=== PATIENT | male | born 1970 | race Caucasian/White ===

== ENCOUNTER 2017-10-14 04:47 | Emergency (ER) | payer MEDICAID, OTHER ==
[~2017-10-14] VITALS: Ht 183.5 cm; Wt 120.2 kg
[~2017-10-14 04:47] MED LIST: ADDERAL20 MG ORAL; AMOXICILLIN875 MG PO; KLONOPIN1 MG ORAL; LEXAPRO10 MG ORAL; NORCO 5-325 TA1 EACH ORAL; PRILOSEC OTC20 MG ORAL; PROPRANOLOL HCL40 MG ORAL
[2017-10-14] MEDS ORDERED: BENZTROPINE ME0.5 MG PO (04:55)
[2017-10-14] MEDS ORDERED: RISPERDAL0.25 MG ORAL (04:55)
[2017-10-14] MEDS ORDERED: LORAZEPAM0.5 MG ORAL (04:55)
[2017-10-14] MEDS ORDERED: INDERAL LA60 MG ORAL (04:55)
[2017-10-14] MEDS ORDERED: BUSPAR10 MG ORAL (04:55)
[2017-10-14] MEDS ORDERED: WELLBUTRIN XL150 MG ORAL (04:55)
[2017-10-14] MEDS ORDERED: LAMICTAL25 MG ORAL (04:55)
[2017-10-14 05:05] VITALS: BP 128/92
--- NOTE | 2017-10-14 05:06 | Emergency Room Report ---
History of Present Illness General Chief Complaint: Male Urogenital Problems Source: Patient Present Illness HPI This is a 47-year-old male with history of bipolar. He presents with chief complaint of difficult urinating. He said his been ongoing about a week now. Said he can't urinate less to give himself a small enema. He also has issues with urinating at home by himself. No fever or chills. No nausea no vomiting. No incontinence of bowel or urine. No constipation. Allergies: Coded Allergies: No Known Allergies (Unverified , 07/24/13) Patient History Past Medical History: see triage record, old chart reviewed, psych hx Past Surgical History: none Pertinent Family History: none Social History: Denies: smoking Immunizations: other Reviewed Nursing Documentation: PMH: Agreed; PSxH: Agreed Nursing Documentation-PMH Past Medical History: No History, Except For Hx Cancer: Yes - TESTICULAR 2014 Hx Neurological Problems: Yes - bipolar Review of Systems Eye: Denies: eye pain, blurred vision ENT: Denies: ear pain, nose congestion, throat swelling Respiratory: Denies: cough, shortness of breath Cardiovascular: Denies: chest pain, palpitations Gastrointestinal: Denies: abdominal pain, diarrhea, nausea, vomiting Genitourinary: Reports: retention Musculoskeletal: Denies: back pain, joint pain Skin: Denies: rash Neurological: Denies: headache, numbness Endocrine: Denies: increased thirst, increased urine Hematologic/Lymphatic: Denies: easy bruising All Other Systems: negative except mentioned in HPI Physical Exam Vital Signs Date Time Temp Pulse Resp B/P (MAP) Pulse Ox O2 Delivery O2 Flow Rate FiO2 10/14/17 04:49 98.5 86 18 128/92 95 Room Air 98.4 vitals normal Sp02 EP Interpretation: reviewed, normal General Appearance: well appearing, no apparent distress, alert Head: normocephalic, atraumatic Eyes: bilateral eye PERRL, bilateral eye EOMI ENT: hearing grossly normal, normal pharynx Neck: full range of motion, supple, no meningismus Respiratory: chest non-tender, lungs clear, normal breath sounds Cardiovascular #1: regular rate, rhythm, no murmur Gastrointestinal: normal bowel sounds, non tender, no mass, no organomegaly, no bruit, non-distended Musculoskeletal: back normal, gait/station normal, normal range of motion Psychiatric: mood/affect normal Skin: warm/dry Medical Decision Making Diagnostic Impression: Primary Impression: Urinary dysfunction ER Course Patient presents with questionable urinary retention. Pop only showed about 350 mL initially. This may be more psychological than anything else. We'll put him on Flomax but no evidence of an infection. No evidence of obstruction. We'll discharge home. Last Vital Signs Date Time Temp Pulse Resp B/P (MAP) Pulse Ox O2 Delivery O2 Flow Rate FiO2 10/14/17 04:49 98.5 86 18 128/92 95 Room Air 98.4 Status: improved Disposition: HOME, SELF-CARE Condition: Stable Scripts Tamsulosin Hcl (TAMSULOSIN HCL*) 0.4 Mg Cap.er.24h 0.4 MG ORAL BEDTIME, #30 CAP Prov: PRISCILA CARDONA M.D. 10/14/17 Additional Instructions: Follow-up with your doctor in 7 days. If not better, you may need a referral to see a urologist. Return if symptom worsen. PRISCILA CARDONA M.D. Oct 14, 2017 05:06
[2017-10-14 05:41] LABS: APPEARANCE,URINE CLEAR; BILIRUBIN, URINE NEGATIVE (NEGATIVE); GLUCOSE, URINE (UA) NEGATIVE (NEGATIVE); KETONES,URINE NEGATIVE (NEGATIVE); LEUKOCYTE ESTERASE ,URINE NEGATIVE (NEGATIVE); NITRITE,URINE NEGATIVE (NEGATIVE); PH,URINE 6.5 (4.5-8.0); PROTEIN,URINE NEGATIVE (NEGATIVE); UROBILINOGEN,URINE NORMAL MG/DL (0.0-1.0)
[2017-10-14 05:47] LABS: COLOR,URINE YELLOW
[2017-10-14] MEDS ORDERED: TAMSULOSIN HCL0.4 MG ORAL (05:57)
[2017-10-14 06:01] VITALS: BP 128/92
== END 2017-10-14 06:01 | disposition home or self-care (01) ==
LOC: EMR 05:08
DX: R33.9 Retention of urine, unspecified (principal); F31.9 Bipolar disorder, unspecified; Z85.47 Personal history of malignant neoplasm of testis
CPT/HCPCS: 81003; 99283

== ENCOUNTER 2017-10-14 23:19 | Emergency (ER) | payer OTHER ==
[~2017-10-14] VITALS: Ht 183.5 cm; Wt 120.2 kg
[~2017-10-14 23:19] MED LIST changes: +BENZTROPINE ME0.5 MG PO; +BUSPAR10 MG ORAL; +INDERAL LA60 MG ORAL; +LAMICTAL25 MG ORAL; +LORAZEPAM0.5 MG ORAL; +RISPERDAL0.25 MG ORAL; +TAMSULOSIN HCL0.4 MG ORAL; +WELLBUTRIN XL150 MG ORAL
[2017-10-15 00:51] LABS: BASOPHILS % (AUTO) 0.8 % (0.0-2.0); EOSINOPHILS % (AUTO) 2.2 % (0.0-3.0); HEMATOCRIT 47.2 % (42.0-52.0); HEMOGLOBIN 16.5 G/DL (14.2-18.0); MEAN CORPUSCULAR VOLUME 92 FL (80-99); MONOCYTES % (AUTO) 9.8 % (1.0-10.0); NEUTROPHILS % (AUTO) 59.2 % (45.0-75.0); PLATELET COUNT 213 K/UL (150-450); RED BLOOD COUNT 5.11 M/UL (4.70-6.10); WHITE BLOOD COUNT 6.8 K/UL (4.8-10.8)
[2017-10-15 01:11] LABS: ANION GAP 9 mmol/L (5-15); BLOOD UREA NITROGEN 12 mg/dL (7-18); CALCIUM 8.4 MG/DL (8.5-10.1); CARBON DIOXIDE 25 MMOL/L (21-32); CHLORIDE 104 MMOL/L (98-107); CREATININE 1.5 MG/DL (0.55-1.30); POTASSIUM 4.1 MMOL/L (3.5-5.1); SODIUM 138 MMOL/L (136-145)
[2017-10-15 01:15] LABS: ALANINE AMINOTRANSFERASE 40 U/L (12-78); ALBUMIN 3.8 G/DL (3.4-5.0); ALBUMIN/GLOBULIN RATIO 1.2 (1.0-2.7); ALKALINE PHOSPHATASE 65 U/L (46-116); ASPARTATE AMINO TRANSFERASE 16 U/L (15-37); BILIRUBIN,TOTAL 0.4 MG/DL (0.2-1.0)
[2017-10-15 02:29] VITALS: BP 107/91
--- NOTE | 2017-10-15 02:45 | Emergency Room Report ---
History of Present Illness General Chief Complaint: Male Urogenital Problems Source: Patient Present Illness HPI 47-year-old male, no significant past medical history, presenting with intermittent urinary retention for one week. States that he only "trickles a little bit". No fever no chills no abdominal pain no discomfort just states that he cannot urinate normally. Denies any other complaints Allergies: Coded Allergies: No Known Allergies (Unverified , 07/24/13) Patient History Past Medical History: see triage record Past Surgical History: none Pertinent Family History: none Reviewed Nursing Documentation: PMH: Agreed; PSxH: Agreed Nursing Documentation-PMH Past Medical History: No History, Except For Hx Cancer: Yes - TESTICULAR 2014 Hx Neurological Problems: Yes - bipolar Review of Systems All Other Systems: negative except mentioned in HPI Physical Exam Vital Signs Date Time Temp Pulse Resp B/P (MAP) Pulse Ox O2 Delivery O2 Flow Rate FiO2 10/14/17 23:36 97.8 71 16 127/87 94 Room Air 97.9 Sp02 EP Interpretation: reviewed, normal General Appearance: normal inspection, well appearing, no apparent distress, alert, GCS 15, non-toxic Head: normocephalic, atraumatic Eyes: bilateral eye normal inspection, bilateral eye PERRL, bilateral eye EOMI ENT: normal ENT inspection, normal pharynx, normal voice, moist mucus membranes Neck: normal inspection, full range of motion, supple Respiratory: normal inspection, lungs clear, normal breath sounds, no respiratory distress, no retraction, no wheezing, speaking full sentences, chest symmetrical Cardiovascular #1: normal inspection, regular rate, rhythm, no edema, normal capillary refill Cardiovascular #2: 2+ radial (R), 2+ radial (L) Gastrointestinal: normal inspection, non tender, soft, non-distended, no guarding Genitourinary: no CVA tenderness Musculoskeletal: normal inspection, back normal, normal range of motion, non- tender Neurologic: normal inspection, alert, oriented x3, responsive, motor strength/ tone normal, sensory intact, normal gait, speech normal Psychiatric: normal inspection, judgement/insight normal, memory normal Skin: normal inspection, normal color, no rash, warm/dry, well hydrated, normal turgor Medical Decision Making Diagnostic Impression: Primary Impression: Urinary retention Additional Impression: Mild renal insufficiency ER Course 47-year-old male reportedly with questionable urinary retention for one week, he was already seen in our emergency room a couple days ago DDX: UTI, BPH, psychosomatic Plan: Obtain labs, UA ER course: Patient has remained stable during ED stay. States he still was not able to be during ED stay, however. He appears very comfortable Slightly elevated creatinine at 1.5, unknown normal Bedside ultrasound done performed by me noted to have some bladder distention however not significant Abdominal exam is benign Pop placed, ~800cc urine output DC with leg bag Disposition: Patient is to be discharged to home. Follow-up with urology in 3-4 days Please note that this Emergency Department Report was dictated using [employer] hand technology software, occasionally this can lead to erroneous entry secondary to interpretation by the dictation equipment Laboratory Tests Test 10/15/17 00:30 10/15/17 02:50 White Blood Count 6.8 K/UL (4.8-10.8) Red Blood Count 5.11 M/UL (4.70-6.10) Hemoglobin 16.5 G/DL (14.2-18.0) Hematocrit 47.2 % (42.0-52.0) Mean Corpuscular Volume 92 FL (80-99) Mean Corpuscular Hemoglobin 32.3 PG (27.0-31.0) H Mean Corpuscular Hemoglobin Concent 35.0 G/DL (32.0-36.0) Red Cell Distribution Width 11.0 % (11.6-14.8) L Platelet Count 213 K/UL (150-450) Mean Platelet Volume 6.5 FL (6.5-10.1) Neutrophils (%) (Auto) 59.2 % (45.0-75.0) Lymphocytes (%) (Auto) 28.0 % (20.0-45.0) Monocytes (%) (Auto) 9.8 % (1.0-10.0) Eosinophils (%) (Auto) 2.2 % (0.0-3.0) Basophils (%) (Auto) 0.8 % (0.0-2.0) Sodium Level 138 MMOL/L (136-145) Potassium Level 4.1 MMOL/L (3.5-5.1) Chloride Level 104 MMOL/L (98-107) Carbon Dioxide Level 25 MMOL/L (21-32) Anion Gap 9 mmol/L (5-15) Blood Urea Nitrogen 12 mg/dL (7-18) Creatinine 1.5 MG/DL (0.55-1.30) H Estimate Glomerular Filtration Rate 50.2 mL/min (>60) Glucose Level 105 MG/DL (74-106) Calcium Level 8.4 MG/DL (8.5-10.1) L Total Bilirubin 0.4 MG/DL (0.2-1.0) Aspartate Amino Transferase (AST) 16 U/L (15-37) Alanine Aminotransferase (ALT) 40 U/L (12-78) Alkaline Phosphatase 65 U/L (46-116) Total Protein 6.9 G/DL (6.4-8.2) Albumin 3.8 G/DL (3.4-5.0) Globulin 3.1 g/dL Albumin/Globulin Ratio 1.2 (1.0-2.7) Lipase 291 U/L (73-393) Urine Color Pale yellow Urine Appearance Clear Urine pH 6 (4.5-8.0) Urine Specific [place] 1.015 (1.005-1.035) Urine Protein Negative (NEGATIVE) Urine Glucose (UA) Negative (NEGATIVE) Urine Ketones Negative (NEGATIVE) Urine Occult Blood Negative (NEGATIVE) Urine Nitrite Negative (NEGATIVE) Urine Bilirubin Negative (NEGATIVE) Urine Urobilinogen Normal MG/DL (0.0-1.0) Urine Leukocyte Esterase Negative (NEGATIVE) Last Vital Signs Date Time Temp Pulse Resp B/P (MAP) Pulse Ox O2 Delivery O2 Flow Rate FiO2 10/15/17 02:29 98.2 66 15 107/91 100 Room Air 98.2 Disposition: HOME, SELF-CARE Condition: Improved Referrals: [facility],REFERRING (PCP) Patient Instructions: Acute Urinary Retention, Male, [id number] Rome Reddy M.D. Oct 15, 2017 02:45
[2017-10-15 03:38] LABS: APPEARANCE,URINE CLEAR; BILIRUBIN, URINE NEGATIVE (NEGATIVE); COLOR,URINE PALE YELLOW; GLUCOSE, URINE (UA) NEGATIVE (NEGATIVE); KETONES,URINE NEGATIVE (NEGATIVE); LEUKOCYTE ESTERASE ,URINE NEGATIVE (NEGATIVE); NITRITE,URINE NEGATIVE (NEGATIVE); PH,URINE 6 (4.5-8.0); PROTEIN,URINE NEGATIVE (NEGATIVE); UROBILINOGEN,URINE NORMAL MG/DL (0.0-1.0)
[2017-10-15 03:45] VITALS: BP 106/78
== END 2017-10-15 03:45 | disposition home or self-care (01) ==
LOC: EMR 23:43
DX: R33.9 Retention of urine, unspecified (principal); N28.9 Disorder of kidney and ureter, unspecified; Z85.47 Personal history of malignant neoplasm of testis; F31.9 Bipolar disorder, unspecified
CPT/HCPCS: 36415; 80053; 81003; 83690; 85025; 99282

== ENCOUNTER 2017-11-08 02:56 | Emergency (ER) | payer OTHER ==
[~2017-11-08] VITALS: Ht 182.9 cm; Wt 113.4 kg
[~2017-11-08 02:56] MED LIST changes: +CEPHALEXIN500 MG ORAL
--- NOTE | 2017-11-08 03:22 | Emergency Room Report ---
History of Present Illness General Chief Complaint: Male Urogenital Problems Source: Patient Present Illness HPI Patient 47-year-old male who presented after decreased urine output. Patient reports having prior history of the recent Pop catheter placement. The patient had recently had Pop catheter removed. He was noted to have the decreased urinary output. Patient states he had not urinated in approximately 24 hours. Patient did not describe having any abdominal pain or flank pain. He denied sensation that he needed to void. Patient prior history of testicular cancer. Allergies: Coded Allergies: No Known Allergies (Unverified , 07/24/13) Patient History Reviewed Nursing Documentation: PMH: Agreed; PSxH: Agreed Nursing Documentation-PMH Hx Cancer: Yes - TESTICULAR 2014 Hx Neurological Problems: Yes - bipolar Review of Systems All Other Systems: negative except mentioned in HPI Physical Exam Vital Signs Date Time Temp Pulse Resp B/P (MAP) Pulse Ox O2 Delivery O2 Flow Rate FiO2 11/08/17 03:01 98.1 66 16 128/90 96 Room Air 98.1 Sp02 EP Interpretation: reviewed, normal General Appearance: normal inspection, well appearing, no apparent distress, alert, GCS 15 Head: atraumatic ENT: normal ENT inspection, hearing grossly normal, normal voice Neck: normal inspection, full range of motion, supple, no bony tend Respiratory: normal inspection, lungs clear, normal breath sounds, no respiratory distress, no retraction, no wheezing Cardiovascular #1: regular rate, rhythm, no edema Gastrointestinal: normal inspection, normal bowel sounds, non tender, soft, no guarding, no hernia Genitourinary: no CVA tenderness Musculoskeletal: normal inspection, back normal, normal range of motion Neurologic: normal inspection, alert, oriented x3, responsive, bench mechanic III-XII nml as tested, speech normal Psychiatric: normal inspection, judgement/insight normal, mood/affect normal Skin: normal inspection, normal color, no rash Medical Decision Making Diagnostic Impression: Primary Impression: H/O urinary retention ER Course The patient presented for decreased urine output.Differential diagnoses included was not limited to urinary retention, prerenal azotemia, intrarenal failure, postrenal azotemia, dehydration among others.Because of complexity of patient's case laboratory testing and imaging studies were ordered.Laboratory testing showed normal BUN/creatinine. The patient's bedside ultrasound showed nondistended bladder. The patient's exam is inconsistent with dehydration. The patient is advised to recheck with his urologist in the next few days. Patient was advised to return if he isn't able to void or other concerns. Labs Test 11/08/17 03:00 White Blood Count 7.3 K/UL (4.8-10.8) Red Blood Count 5.28 M/UL (4.70-6.10) Hemoglobin 17.0 G/DL (14.2-18.0) Hematocrit 48.8 % (42.0-52.0) Mean Corpuscular Volume 92 FL (80-99) Mean Corpuscular Hemoglobin 32.1 PG (27.0-31.0) Mean Corpuscular Hemoglobin Concent 34.8 G/DL (32.0-36.0) Red Cell Distribution Width 11.1 % (11.6-14.8) Platelet Count 235 K/UL (150-450) Mean Platelet Volume 6.3 FL (6.5-10.1) Neutrophils (%) (Auto) 53.3 % (45.0-75.0) Lymphocytes (%) (Auto) 33.3 % (20.0-45.0) Monocytes (%) (Auto) 9.4 % (1.0-10.0) Eosinophils (%) (Auto) 2.8 % (0.0-3.0) Basophils (%) (Auto) 1.3 % (0.0-2.0) Prothrombin Time 9.8 SEC (9.30-11.50) Prothromb Time International Ratio 0.9 (0.9-1.1) Activated Partial Thromboplast Time 26 SEC (23-33) Sodium Level 141 MMOL/L (136-145) Potassium Level 3.7 MMOL/L (3.5-5.1) Chloride Level 105 MMOL/L (98-107) Carbon Dioxide Level 26 MMOL/L (21-32) Anion Gap 10 mmol/L (5-15) Blood Urea Nitrogen 10 mg/dL (7-18) Creatinine 1.3 MG/DL (0.55-1.30) Estimat Glomerular Filtration Rate 59.2 mL/min (>60) Glucose Level 113 MG/DL (74-106) Calcium Level 8.7 MG/DL (8.5-10.1) Total Bilirubin 0.4 MG/DL (0.2-1.0) Aspartate Amino Transf (AST/SGOT) 17 U/L (15-37) Alanine Aminotransferase (ALT/SGPT) 41 U/L (12-78) Alkaline Phosphatase 67 U/L (46-116) Pro-B-Type Natriuretic Peptide 21 pg/mL (0-125) Total Protein 6.9 G/DL (6.4-8.2) Last Vital Signs Date Time Temp Pulse Resp B/P (MAP) Pulse Ox O2 Delivery O2 Flow Rate FiO2 11/08/17 03:01 98.1 66 16 128/90 96 Room Air 98.1 Status: improved Disposition: HOME, SELF-CARE Condition: Stable Referrals: NOT CHOSEN [facility]/,REFERRING (PCP) Ashkan Julio November 08, 2017 03:22
[2017-11-08] MEDS ORDERED: Sodium Chloride 500ML 500 ML IV ONE (03:30)
[2017-11-08 03:47] LABS: BASOPHILS % (AUTO) 1.3 % (0.0-2.0); EOSINOPHILS % (AUTO) 2.8 % (0.0-3.0); HEMATOCRIT 48.8 % (42.0-52.0); LYMPHOCYTES % (AUTO) 33.3 % (20.0-45.0); MEAN CORPUSCULAR VOLUME 92 FL (80-99); MONOCYTES % (AUTO) 9.4 % (1.0-10.0); NEUTROPHILS % (AUTO) 53.3 % (45.0-75.0); PLATELET COUNT 235 K/UL (150-450); RED BLOOD COUNT 5.28 M/UL (4.70-6.10); RED CELL DISTRIBUTION WIDTH 11.1 % (11.6-14.8); WHITE BLOOD COUNT 7.3 K/UL (4.8-10.8)
[2017-11-08 04:03] LABS: INR 0.9 (0.9-1.1)
[2017-11-08 04:04] LABS: ANION GAP 10 mmol/L (5-15); BLOOD UREA NITROGEN 10 mg/dL (7-18); CALCIUM 8.7 MG/DL (8.5-10.1); CARBON DIOXIDE 26 MMOL/L (21-32); CHLORIDE 105 MMOL/L (98-107); CREATININE 1.3 MG/DL (0.55-1.30); POTASSIUM 3.7 MMOL/L (3.5-5.1); SODIUM 141 MMOL/L (136-145)
[2017-11-08 04:14] LABS: ALANINE AMINOTRANSFERASE 41 U/L (12-78); ALKALINE PHOSPHATASE 67 U/L (46-116); ASPARTATE AMINO TRANSFERASE 17 U/L (15-37); BILIRUBIN,TOTAL 0.4 MG/DL (0.2-1.0)
[2017-11-08 04:24] VITALS: BP 0/0
[2017-11-08 04:30] VITALS: BP 0/0
[2017-11-08 05:24] LABS: ALBUMIN 3.5 G/DL (3.4-5.0)
== END 2017-11-08 04:30 | disposition home or self-care (01) ==
LOC: EMR 03:15
DX: R33.9 Retention of urine, unspecified (principal); F31.9 Bipolar disorder, unspecified; Z85.47 Personal history of malignant neoplasm of testis
CPT/HCPCS: 36415; 80053; 83880; 85025; 85610; 85730; 96374; 99284; J7040